=== PATIENT | female | born 1980 | race American Indian/Alaskan Native ===

== ENCOUNTER 2016-10-19 12:56 | Emergency (ER) | payer MEDICAID ==
[2016-10-19 13:08] VITALS: BMI 25.8
[2016-10-19 13:12] VITALS: TEMP 98.6
--- NOTE | 2016-10-19 13:43 | ED PDOC ---
Arrival/HPI - General Chief Complaint: Lower Extremity Problem/Injury Time Seen by Provider: 10/19/16 13:11 Historian: Patient - History of Present Illness Narrative History of Present Illness (Text): 10/19/16 13:27 36-year-old female presents today with left-sided knee pain 3 days. Patient denies any trauma or injury. Patient states she's noticed swelling to the left knee for the past couple of days. Patient states on and off she's been having some swelling to the knee. She denies fevers or chills. Patient states she is able to ambulate with a limp. States she's been taking some Motrin for pain at home with minimal improvement. Patient denies decreased range of motion of the knee but states that the knee feels tight when she does full flexion of the knee. Patient denies calf pain. Denies numbness weakness or tingling in the extremity. No other complaints Past Medical History - Provider Review Nursing Documentation Reviewed: Yes - Travel History Have you recently traveled outside [place] w/in the past 3 mons?: No - Tetanus Immunization Tetanus Immunization: Unknown - Psychiatric Hx Substance Use: No Family/Social History - Physician Review Nursing Documentation Reviewed: Yes Family/Social History: Unknown Family HX Smoking Status: Never Smoked Hx Alcohol Use: No Hx Substance Use: No Allergies/Home Meds Allergies/Adverse Reactions: Allergies No Known Allergies Allergy (Verified 10/19/16 13:08) Review of Systems - Review of Systems Constitutional: absent: Fatigue, Fevers Respiratory: absent: SOB, Cough Cardiovascular: absent: Chest Pain, Palpitations Gastrointestinal: absent: Abdominal Pain, Nausea, Vomiting Genitourinary Female: absent: Dysuria, Frequency, Hematuria Musculoskeletal: Arthralgias (left knee pain /swelling), Joint Swelling Skin: absent: Rash, Pruritis Neurological: absent: Headache, Dizziness Physical Exam Vital Signs Reviewed: Yes Vital Signs Temp Pulse Resp BP Pulse Ox 10/19/16 13:08 98.6 F 87 16 105/78 97 Temperature: Afebrile Blood Pressure: Normal Pulse: Regular Respiratory Rate: Normal Appearance: Positive for: Well-Appearing, Non-Toxic, Comfortable Pain Distress: None Mental Status: Positive for: Alert and Oriented X 3 - Systems Exam Head: Present: Atraumatic Neck: Present: Normal Range of Motion Respiratory/Chest: Present: Clear to Auscultation, Good Air Exchange. No: Respiratory Distress, Accessory Muscle Use Cardiovascular: Present: Regular Rate and Rhythm, Normal S1, S2. No: Murmurs Lower Extremity: Present: NORMAL PULSES, Normal ROM, Tenderness, Swelling, Neurovascularly Intact. No: CALF TENDERNESS, Erythema, Deformity, Temperature Abnormalties Medical Decision Making ED Course and Treatment: 10/19/16 14:09 Patient nontoxic well-appearing in no distress with stable vital signs X-rays of the left knee: No fracture Toradol IM Patient placed in knee immobilizer. Crutches given for ambulation I discussed all results with patient advised to followup with the orthopedist for the next 2 days. Return if symptoms worsen persist or new symptoms develop i advised the patient that although the xrays show no fracture; there is still a possibility for ligamentous or tendon injury the patient must see the orthopedist for further evaluation. Patient verbalizes understanding of discharge instructions and need for immediate followup. Impression: knee pain Motrin every 6 hours as needed for pain Rest, ice, compression, elevation Use crutches for ambulation Followup with the orthopedist within the next 2 days Followup with primary care physician within the next 2 days Return if symptoms worsen persist or if new symptoms develop - RAD Interpretation Radiology Orders: 10/19/16 13:26 KNEE WITH PATELLA LEFT 3 VIEW [RAD] Stat - Medication Orders Current Medication Orders: Ketorolac Tromethamine (Toradol) 60 mg IM STAT STA Stop: 10/19/16 13:27 Disposition/Present on Arrival - Present on Arrival Any Indicators Present on Arrival: No History of DVT/PE: No History of Uncontrolled Diabetes: No Urinary Catheter: No History of Decub. Ulcer: No History Surgical Site Infection Following: None - Disposition Have Diagnosis and Disposition been Completed?: Yes Diagnosis: Knee pain Disposition: HOME/ ROUTINE Disposition Time: 14:10 Patient Plan: Discharge Condition: GOOD Discharge Instructions (ExitCare): Knee Pain (ED), Swollen Joint (ED) Additional Instructions: Motrin every 6 hours as needed for pain Rest, ice, compression, elevation Use crutches for ambulation Followup with the orthopedist within the next 2 days Followup with primary care physician within the next 2 days Return if symptoms worsen persist or if new symptoms develop Prescriptions: Ibuprofen [Motrin] 600 mg PO Q6H PRN #20 tab PRN Reason: pain/fever reduction Referrals: Loco Montes DO [Staff Provider] - Follow up with primary [facility] [place] [Outside] - Follow up with primary Forms: WORK NOTE
--- NOTE | 2016-10-19 14:17 | RAD ---
PROCEDURE: Left Knee Radiographs. HISTORY: Pain. COMPARISON: None. FINDINGS: BONES: Normal. No fracture. JOINTS: Normal. No osteoarthritis. JOINT EFFUSION: Small joint effusion OTHER FINDINGS: None. IMPRESSION: Normal radiographs of the left knee.
[2016-10-19 14:41] VITALS: BP 118/75; PULSE 76; RESP 18; O2SAT 100
== END 2016-10-19 14:55 | disposition home or self-care (01) ==
LOC: ED 12:56
DX: M25.562 Pain in left knee (principal)
CPT/HCPCS: 73562; 96372; 99284; J1885